=== PATIENT | female | born 1990 | race Caucasian/White ===

== ENCOUNTER 2018-10-04 22:24 | Emergency (ER) | payer OTHER ==
[2018-10-04 22:30] VITALS: TEMP 97.9
[2018-10-05 00:03] VITALS: BP 103/68; PULSE 77; RESP 18; O2SAT 95
== END 2018-10-04 23:32 | disposition home or self-care (01) ==
LOC: ED 22:24
DX: S86.912A Strain of unspecified muscle(s) and tendon(s) at lower leg level, left leg, initial encounter (principal); W22.8XXA Striking against or struck by other objects, initial encounter
CPT/HCPCS: 73562; 99283; E0114